=== PATIENT | female | born 1985 | race Caucasian/White ===

== ENCOUNTER 2017-10-30 21:10 | Inpatient (IN) | payer SELFPAY ==
[2017-10-30] MEDS ORDERED: Carboprost Tromethamine 250 MCG/1 ML Amp IM PRN (21:13)
[2017-10-30] MEDS ORDERED: Methylergonovine 0.2 MG/1 ML Amp IM PRN (21:13)
[2017-10-30] MEDS ORDERED: Butorphanol 1 MG/ML SDV IVPUSH PRN (21:13)
[2017-10-30] MEDS ORDERED: Lidocaine 1% 50 ML MDV INJECT PRN (21:13)
[2017-10-30] MEDS ORDERED: Sodium Chloride 0.9% 10 ML Syringe FLUSH PRN (21:13)
[2017-10-30] MEDS ORDERED: Misoprostol 200 MCG Tab PO PRN (21:13)
[2017-10-30] MEDS ORDERED: Sodium Chloride 0.9% 2.5 ML Syringe FLUSH PRN (21:13)
[2017-10-30] MEDS ORDERED: Nalbuphine 10 MG/1 ML Vial IVPUSH PRN (21:13)
[2017-10-30] MEDS ORDERED: Water For Irrigation,Sterile 1,000 ML Container IRR PRN (21:13)
[2017-10-30] MEDS ORDERED: Tranexamic Acid 1,000 MG in Sodium Chloride 0.9% 100 ML IV PRN (21:13)
[2017-10-30] MEDS ORDERED: Oxytocin/0.9 % Sodium Chloride 30 UNIT/500 ML BAG IV SCH (21:15)
[2017-10-30] MEDS ORDERED: Lactated Ringers 1,000 ML IV SCH (21:15)
--- NOTE | 2017-10-30 21:19 | PCM.LDHP ---
L&D History of Present Illness - General Date of Service: 10/30/17 Admit Problem/Dx: Patient Status Order with Admit Dx/Problem 10/30/17 21:13 Patient Status [ADT] Routine Admission Diagnosis/Problem Admission Diagnosis/Problem 10/30/17 21:15 32y EDC 10/23/2017 40 6/7wks B+, RI, GBS neg. Active Labor Source of Information: Patient History Limitations: Reports: No Limitations - History of Present Illness Timing/Duration: Reports: minutes: Location, : Reports: Abdomen Quality: Reports: Ache Severity: Moderate Improves with: Reports: None Worsens with: Reports: None Associated Symptoms: Reports: N - Related Data Allergies/Adverse Reactions: Allergies Allergy/AdvReac Type Severity Reaction Status Date / Time No Known Allergies Allergy Verified 03/05/14 16:35 Home Medications: Home Meds Cranberry 03/05/14 [History] Lactobacillus Acidophilus [Probiotic] 1 each PO 03/05/14 [History] Vits #93/Iron Fum/FA [ Formula Tablet] 1 each PO 03/05/14 [ History] Past Medical History Other Musculoskeletal History: surgery on R knee H&P Review of Systems - Review of Systems: Review Of Systems: See Below General: Reports: No Symptoms HEENT: Reports: No Symptoms Pulmonary: Reports: No Symptoms Cardiovascular: Reports: No Symptoms Gastrointestinal: Reports: No Symptoms Genitourinary: Reports: No Symptoms Musculoskeletal: Reports: No Symptoms Skin: Reports: No Symptoms Psychiatric: Reports: No Symptoms Neurological: Reports: No Symptoms Hematologic/Lymphatic: Reports: No Symptoms Immunologic: Reports: No Symptoms L&D Exam - Exam Exam: See Below - Vital Signs Weight: 76.204 kg - OB Specific Contraction Intensity: Moderate to Strong Movement: Active Heart Tones: Present Heart Tones per Min: 135 Heart Rate (FHR) Variability: Moderate (6-25 bmp) Presentation: Vertex - Exam General: Alert, Oriented, Cooperative HEENT: Hearing Intact Lungs: Normal Respiratory Effort GI/Abdominal Exam: Normal Bowel Sounds, Soft, Non-Tender, No Organomegaly, No Distention, No Abnormal Bruit, No Mass, Pelvis Stable Rectal Exam: Deferred Genitourinary: Cervical dilitation Back Exam: Normal Inspection, Full Range of Motion Extremities: Normal Inspection, Normal Range of Motion, Non-Tender, No Pedal Edema, Normal Capillary Refill Skin: Warm, Dry, Intact Neurological: Cranial Nerves Intact, Reflexes Equal Bilateral, Normal Speech, Normal Tone Psychiatric: Alert, Normal Affect, Normal Mood - Problem List (1) Supervision of normal IUP (intrauterine ) in multigravida SNOMED Code(s): 020469619, 481956923, 617514500 ICD Code: Z34.80 - ENCOUNTER FOR SUPRVSN OF NORMAL , UNSP TRIMESTER Status: Acute Current Visit: Yes Qualifiers: Trimester: third trimester Qualified Code(s): Z34.83 - Encounter for supervision of other normal , third trimester Problem List Initiated/Reviewed/Updated: Yes Orders Last 24hrs: Active Orders 24 hr Category Date Time Status Patient Status [ADT] Routine ADT 10/30/17 21:13 Ordered Heart Tones [RC] CONTINUOUS Care 10/30/17 21:13 Ordered Non Stress Test [RC] PER UNIT ROUTINE Care 10/30/17 21:13 Ordered May Shower [RC] ASDIRECTED Care 10/30/17 21:13 Ordered Notify Provider [RC] PRN Care 10/30/17 21:13 Ordered Up ad Hillary [RC] ASDIRECTED Care 10/30/17 21:13 Ordered Vaginal Exam [RC] PRN Care 10/30/17 21:13 Ordered Vital Signs [RC] PER UNIT ROUTINE Care 10/30/17 21:13 Ordered CBC W/O DIFF,HEMOGRAM [HEME] Routine Lab 10/30/17 21:13 Ordered TYPE AND SCREEN [BBK] Routine Lab 10/30/17 21:13 Ordered Butorphanol [Stadol] Med 10/30/17 21:13 Ordered 1 mg IVPUSH Q1H PRN Carboprost Tromethamine [Hemabate DS] Med 10/30/17 21:13 Ordered 250 mcg IM ASDIRECTED PRN Lactated Ringers @ 150 MLS/HR(1000ml) Med 10/30/17 21:15 Ordered Lactated Ringers [Ringers, Lactated] 1,000 ml IV ASDIRECTED Lidocaine 1% [Xylocaine 1%] Med 10/30/17 21:13 Ordered 50 ml INJECT .ONCE PRN Methylergonovine [Methergine] Med 10/30/17 21:13 Ordered 0.2 mg IM ASDIRECTED PRN Misoprostol [Cytotec] Med 10/30/17 21:13 Ordered 200 mcg PO .ONCE PRN Nalbuphine [Nubain] Med 10/30/17 21:13 Ordered 10 mg IVPUSH Q1H PRN Oxytocin/0.9 % Sodium Chloride [Oxytocin 30 Unit/500 ML Med 10/30/17 21:15 Ordered -NS] 30 unit in 500 ml IV TITRATE Sodium Chloride 0.9% [Saline Flush] Med 10/30/17 21:13 Ordered 10 ml FLUSH ASDIRECTED PRN Sodium Chloride 0.9% [Saline Flush] Med 10/30/17 21:13 Ordered 2.5 ml FLUSH ASDIRECTED PRN Tranexamic Acid [Cyklokapron] 1,000 mg Med 10/30/17 21:13 Ordered Sodium Chloride 0.9% [Normal Saline] 100 ml IV ONETIME Water For Irrigation,Sterile [Sterile Water for Med 10/30/17 21:13 Ordered Irrigation] 1,000 ml IRR ASDIRECTED PRN Scalp Electrode [WOMSER] Per Unit Routine Oth 10/30/17 21:13 Ordered Peripheral IV Insertion Adult [OM.PC] Routine Oth 10/30/17 21:13 Ordered Resuscitation Status Routine Resus Stat 10/30/17 21:13 Ordered Assessment/Plan Comment:: Labor A: 32y EDC 10/23/2017 40 6/7wks B+, RI, GBS neg. Active Labor P: Admit, anticipate , Dr Kamara updated,
[2017-10-30] MEDS ORDERED: Ibuprofen 800 MG Tab PO PRN (23:16)
[2017-10-30] MEDS ORDERED: Witch Hazel Medicated Pads 40/Jar TOP PRN (23:16)
[2017-10-30] MEDS ORDERED: Docusate Sodium 100 MG Cap PO PRN (23:16)
[2017-10-30] MEDS ORDERED: Lanolin 100% Cream 7 GM Tube TOP PRN (23:16)
[2017-10-30] MEDS ORDERED: Bisacodyl 10 MG Supp RECTAL PRN (23:16)
[2017-10-30] MEDS ORDERED: Acetaminophen 500 MG Tab PO PRN ×2 (23:16)
[2017-10-30] MEDS ORDERED: Benzocaine/Menthol 20%-0.5% Spray 78 GM Cannister TOP PRN (23:16)
[2017-10-30] MEDS ORDERED: oxyCODONE 5 MG Tab PO PRN (23:16)
[2017-10-30] MEDS ORDERED: Ibuprofen 400 MG Tab PO PRN (23:16)
--- NOTE | 2017-10-30 23:24 | PCM.DEL ---
L & D Note - General Info Date of Service: 10/30/17 Mother's Due Date: 10/23/17 - Delivery Note Labor: Spontaneous Delivery Outcome: Livebirth Infant Delivery Method: Spontaneous Vaginal Delivery-Single Delivery Mode: Spontaneous Presentation: Vertex Nuchal Cord: Present (x2) Anesthesia Type: None Amniotic Fluid Description: Bloody Episiotomy Type: None Laceration: None Placenta: Intact, Spontaneous Cord: 3 Vessels Estimated Blood Loss: 100 Resuscitation Needed: No Score 1 min: 9 Score 5 min: 9 Second Stage Interventions: Reports: Pushing, Knee Chest Position Delivery Comments (Free Text/Narrative):: of viable male over intact perineum. Head delivered with great pushing on hands and knees, nuchel x2 reduced over head. Shoulders and body followed easily. to mother, mom turned to back. Spont cry. RN at for evaluation. Delayed cord clamping, cord clamped and cut by FOB. Cord blood collected. Placenta delivered grossly intact. Inspection noted intact perineum. EBL 100cc, APGARS 9/9, Wt: pending. Mother and baby breast feeding well. Stable - General Info Date of Service: 10/30/17 Admission Dx/Problem (Free Text): Patient Status Order with Admit Dx/Problem 10/30/17 21:13 Patient Status [ADT] Routine Admission Diagnosis/Problem Admission Diagnosis/Problem 10/30/17 21:15 32y EDC 10/23/2017 40 6/7wks B+, RI, GBS neg. Active Labor Functional Status: Reports: Pain Controlled, Tolerating Diet, Ambulating - Review of Systems General: Reports: No Symptoms HEENT: Reports: No Symptoms Pulmonary: Reports: No Symptoms Cardiovascular: Reports: No Symptoms Gastrointestinal: Reports: No Symptoms Genitourinary: Reports: No Symptoms Musculoskeletal: Reports: No Symptoms Skin: Reports: No Symptoms Neurological: Reports: No Symptoms Psychiatric: Reports: No Symptoms - Patient Data Weight - Most Recent: 76.204 kg Lab Results Last 24 Hours: Laboratory Results - last 24 hr 10/30/17 10/30/17 Range/Units 21:19 21:19 WBC 11.62 H (4.0-11.0) K/uL RBC 4.58 (4.30-5.90) M/uL Hgb 13.5 (12.0-16.0) g/dL Hct 39.4 (36.0-46.0) % MCV 86.0 (80.0-98.0) fL MCH 29.5 (27.0-32.0) pg MCHC 34.3 (31.0-37.0) g/dL RDW Std Deviation 43.0 (28.0-62.0) fl RDW Coeff of Gualberto 14 (11.0-15.0) % Plt Count 210 (150-400) K/uL MPV 10.80 (7.40-12.00) fL Nucleated RBC % 0.0 /100WBC Nucleated RBCs # 0 K/uL Blood Type B POSITIVE Antibody Screen NEGATIVE Med Orders - Current: Current Medications Acetaminophen (Tylenol Extra Strength) 500 mg PO Q4H PRN PRN Reason: Pain Acetaminophen (Tylenol Extra Strength) 1,000 mg PO Q4H PRN PRN Reason: Pain Benzocaine/Menthol (Dermoplast Pain Relief 20%-0.5% [place]) 78 gm TOP ASDIRECTED PRN PRN Reason: Perineal Comfort Measure Bisacodyl (Dulcolax) 10 mg RECTAL .ONCE PRN PRN Reason: Constipation Docusate Sodium (Colace) 100 mg PO BID PRN PRN Reason: Constipation Emollient Ointment (Lansinoh Hpa) 0 gm TOP ASDIRECTED PRN PRN Reason: Sore Nipples Ibuprofen (Motrin) 400 mg PO Q4H PRN PRN Reason: Pain Ibuprofen (Motrin) 800 mg PO Q6H PRN PRN Reason: Pain Oxycodone HCl (Oxycodone) 5 mg PO Q2H PRN PRN Reason: Pain [place] (Tucks) 1 pad TOP ASDIRECTED PRN PRN Reason: comfort care Discontinued Medications Butorphanol Tartrate (Stadol) 1 mg IVPUSH Q1H PRN PRN Reason: Pain Carboprost Tromethamine (Hemabate Ds) 250 mcg IM ASDIRECTED PRN PRN Reason: Post Hemorrhage Lactated Ringer's (Ringers, Lactated) 1,000 mls @ 150 mls/hr IV ASDIRECTED JUANJOSE Oxytocin/Sodium Chloride (Oxytocin 30 Unit/500 Ml-Ns) 30 unit in 500 mls @ 500 mls/hr IV TITRATE JUANJOSE Tranexamic Acid 1,000 mg/ (Sodium Chloride) 110 mls @ 660 mls/hr IV ONETIME PRN PRN Reason: Bleeding Lidocaine HCl (Xylocaine 1%) 50 ml INJECT .ONCE PRN PRN Reason: Laceration repair Methylergonovine Maleate (Methergine) 0.2 mg IM ASDIRECTED PRN PRN Reason: Post Hemorrhage Misoprostol (Cytotec) 200 mcg PO .ONCE PRN PRN Reason: Post Hemorrhage Nalbuphine HCl (Nubain) 10 mg IVPUSH Q1H PRN PRN Reason: Pain (severe 7-10) Sodium Chloride (Saline Flush) 10 ml FLUSH ASDIRECTED PRN PRN Reason: Keep Vein Open Sodium Chloride (Saline Flush) 2.5 ml FLUSH ASDIRECTED PRN PRN Reason: Keep Vein Open Sterile Water (Sterile Water For Irrigation) 1,000 ml IRR ASDIRECTED PRN PRN Reason: delivery - Exam General: Alert, Oriented, Cooperative, No Acute Distress Lungs: Normal Respiratory Effort GI/Abdominal Exam: Soft, Non-Tender (Female) Exam: Normal External Exam, Vaginal Bleeding Back Exam: Normal Inspection, Full Range of Motion Extremities: Normal Inspection, Normal Range of Motion, Non-Tender, No Pedal Edema, Normal Capillary Refill Skin: Warm, Dry, Intact Wound/Incisions: Healing Well Neurological: No New Focal Deficit, Normal Gait, Normal Speech, Normal Tone, Strength Equal Bilateral Psy/Mental Status: Alert, Normal Affect, Normal Mood - Problem List & Annotations (1) Supervision of normal IUP (intrauterine ) in multigravida SNOMED Code(s): 753442480, 369275321, 209077794 Code(s): Z34.80 - ENCOUNTER FOR SUPRVSN OF NORMAL , UNSP TRIMESTER Status: Acute Current Visit: Yes Qualifiers: Trimester: third trimester Qualified Code(s): Z34.83 - Encounter for supervision of other normal , third trimester (2) (normal spontaneous vaginal delivery) SNOMED Code(s): 07335554 Code(s): O80 - ENCOUNTER FOR FULL-TERM UNCOMPLICATED DELIVERY Status: Acute Priority: High Current Visit: Yes - Problem List Review Problem List Initiated/Reviewed/Updated: Yes - My Orders Last 24 Hours: My Active Orders 10/30/17 21:13 Heart Tones [RC] CONTINUOUS Non Stress Test [RC] PER UNIT ROUTINE May Shower [RC] ASDIRECTED Notify Provider [RC] PRN Up ad Hillary [RC] ASDIRECTED Vaginal Exam [RC] PRN Vital Signs [RC] PER UNIT ROUTINE 10/30/17 23:16 May Shower [RC] ASDIRECTED Up ad Hillary [RC] ASDIRECTED Vital Signs [RC] PER UNIT ROUTINE Acetaminophen [Tylenol Extra Strength] 1,000 mg PO Q4H PRN Acetaminophen [Tylenol Extra Strength] 500 mg PO Q4H PRN Benzocaine/Menthol [Dermoplast Pain Relief 20%-0.5% [place]] 78 gm TOP ASDIRECTED PRN Bisacodyl [Dulcolax] 10 mg RECTAL .ONCE PRN Docusate Sodium [Colace] 100 mg PO BID PRN Ibuprofen [Motrin] 400 mg PO Q4H PRN Ibuprofen [Motrin] 800 mg PO Q6H PRN Lanolin [Lansinoh HPA] See Dose Instructions TOP ASDIRECTED PRN [place] [Tucks] 1 pad TOP ASDIRECTED PRN oxyCODONE 5 mg PO Q2H PRN Assess Lochia [WOMSER] Per Unit Routine Assess Uterine Involution [WOMSER] Per Unit Routine Peripheral IV Discontinue [OM.PC] Routine Resuscitation Status Routine 10/30/17 23:17 Patient Status [ADT] Routine 10/31/17 Breakfast Regular Diet [DIET] - Plan Plan:: Labor A: 32y EDC 10/23/2017 40 6/7wks B+, RI, GBS neg. Active Labor P: Admit, anticipate , Dr Kamara updated, Delivery A: of viable male APGARS 9/9, Wt: 7lb 13oz, Intact perineum, EBL 100cc, Mom and baby stable. P: Routine pp plan of care
--- NOTE | 2017-10-31 07:56 | PCM.DCSUM1 ---
Discharge Summary - Hospital Course Free Text/Narrative:: Discharge home with infant. Follow up in 6 weeks or sooner if needed. - Discharge Data Discharge Date: 10/31/17 Discharge Disposition: Home, Self-Care 01 Condition: Good - Discharge Diagnosis/Problem(s) (1) Supervision of normal IUP (intrauterine ) in multigravida SNOMED Code(s): 844360406, 389335286, 431590222 ICD Code: Z34.80 - ENCOUNTER FOR SUPRVSN OF NORMAL , UNSP TRIMESTER Status: Acute Current Visit: Yes Qualifiers: Trimester: third trimester Qualified Code(s): Z34.83 - Encounter for supervision of other normal , third trimester (2) (normal spontaneous vaginal delivery) SNOMED Code(s): 91804526 ICD Code: O80 - ENCOUNTER FOR FULL-TERM UNCOMPLICATED DELIVERY Status: Acute Priority: High Current Visit: Yes - Patient Instructions Diet: Usual Diet as Tolerated Activity: As Tolerated, No Strenuous Activities, Rest and Relax Today Driving: May Drive Today Showering/Bathing: May Shower Notify Provider of: Fever, Increased Pain, Swelling and Redness, Nausea and/or Vomiting Other/Special Instructions: Discharge home with infant. Follow up in 6 weeks or sooner if needed. - Discharge Plan Home Medications: Home Meds Cranberry 03/05/14 [History] Lactobacillus Acidophilus [Probiotic] 1 each PO 03/05/14 [History] Vits #93/Iron Fum/FA [ Formula Tablet] 1 each PO 03/05/14 [ History] - General Info Date of Service: 10/31/17 Admission Dx/Problem (Free Text: Patient Status Order with Admit Dx/Problem 10/30/17 21:13 Patient Status [ADT] Routine Admission Diagnosis/Problem Admission Diagnosis/Problem 10/30/17 21:15 32y EDC 10/23/2017 40 6/7wks B+, RI, GBS neg. Active Labor Functional Status: Reports: Pain Controlled, Tolerating Diet, Ambulating, Urinating - Review of Systems General: Reports: No Symptoms HEENT: Reports: No Symptoms Pulmonary: Reports: No Symptoms Cardiovascular: Reports: No Symptoms Gastrointestinal: Reports: No Symptoms Genitourinary: Reports: No Symptoms Musculoskeletal: Reports: No Symptoms Skin: Reports: No Symptoms Neurological: Reports: No Symptoms Psychiatric: Reports: No Symptoms - Patient Data Vitals - Most Recent: Last Vital Signs Temp 36.4 C 10/31/17 03:30 Pulse 56 L 10/31/17 03:30 Resp 18 10/31/17 03:30 BP 108/56 L 10/31/17 03:30 Pulse Ox 96 10/31/17 03:30 Weight - Most Recent: 76.204 kg Lab Results - Last 24 hrs: Laboratory Results - last 24 hr 10/30/17 10/30/17 Range/Units 21:19 21:19 WBC 11.62 H (4.0-11.0) K/uL RBC 4.58 (4.30-5.90) M/uL Hgb 13.5 (12.0-16.0) g/dL Hct 39.4 (36.0-46.0) % MCV 86.0 (80.0-98.0) fL MCH 29.5 (27.0-32.0) pg MCHC 34.3 (31.0-37.0) g/dL RDW Std Deviation 43.0 (28.0-62.0) fl RDW Coeff of Gualberto 14 (11.0-15.0) % Plt Count 210 (150-400) K/uL MPV 10.80 (7.40-12.00) fL Nucleated RBC % 0.0 /100WBC Nucleated RBCs # 0 K/uL Blood Type B POSITIVE Antibody Screen NEGATIVE Med Orders - Current: Current Medications Acetaminophen (Tylenol Extra Strength) 500 mg PO Q4H PRN PRN Reason: Pain Acetaminophen (Tylenol Extra Strength) 1,000 mg PO Q4H PRN PRN Reason: Pain Benzocaine/Menthol (Dermoplast Pain Relief 20%-0.5% [place]) 78 gm TOP ASDIRECTED PRN PRN Reason: Perineal Comfort Measure Bisacodyl (Dulcolax) 10 mg RECTAL .ONCE PRN PRN Reason: Constipation Docusate Sodium (Colace) 100 mg PO BID PRN PRN Reason: Constipation Emollient Ointment (Lansinoh Hpa) 0 gm TOP ASDIRECTED PRN PRN Reason: Sore Nipples Ibuprofen (Motrin) 400 mg PO Q4H PRN PRN Reason: Pain Ibuprofen (Motrin) 800 mg PO Q6H PRN PRN Reason: Pain Last Admin: 06/07/18 05:24 Dose: 800 mg Oxycodone HCl (Oxycodone) 5 mg PO Q2H PRN PRN Reason: Pain [place] (Tucks) 1 pad TOP ASDIRECTED PRN PRN Reason: comfort care Discontinued Medications Butorphanol Tartrate (Stadol) 1 mg IVPUSH Q1H PRN PRN Reason: Pain Carboprost Tromethamine (Hemabate Ds) 250 mcg IM ASDIRECTED PRN PRN Reason: Post Hemorrhage Lactated Ringer's (Ringers, Lactated) 1,000 mls @ 150 mls/hr IV ASDIRECTED JUANJOSE Oxytocin/Sodium Chloride (Oxytocin 30 Unit/500 Ml-Ns) 30 unit in 500 mls @ 500 mls/hr IV TITRATE JUANJOSE Tranexamic Acid 1,000 mg/ (Sodium Chloride) 110 mls @ 660 mls/hr IV ONETIME PRN PRN Reason: Bleeding Lidocaine HCl (Xylocaine 1%) 50 ml INJECT .ONCE PRN PRN Reason: Laceration repair Methylergonovine Maleate (Methergine) 0.2 mg IM ASDIRECTED PRN PRN Reason: Post Hemorrhage Misoprostol (Cytotec) 200 mcg PO .ONCE PRN PRN Reason: Post Hemorrhage Nalbuphine HCl (Nubain) 10 mg IVPUSH Q1H PRN PRN Reason: Pain (severe 7-10) Sodium Chloride (Saline Flush) 10 ml FLUSH ASDIRECTED PRN PRN Reason: Keep Vein Open Sodium Chloride (Saline Flush) 2.5 ml FLUSH ASDIRECTED PRN PRN Reason: Keep Vein Open Sterile Water (Sterile Water For Irrigation) 1,000 ml IRR ASDIRECTED PRN PRN Reason: delivery - Exam General: Reports: Alert, Oriented, Cooperative, No Acute Distress Lungs: Reports: Clear to Auscultation, Normal Respiratory Effort Cardiovascular: Reports: Regular Rate, Regular Rhythm, No Murmurs GI/Abdominal Exam: Soft, Non-Tender (Female) Exam: Vaginal Bleeding Rectal (Female) Exam: Deferred Back Exam: Reports: Normal Inspection, Full Range of Motion Extremities: Normal Inspection, Normal Range of Motion, Non-Tender, No Pedal Edema, Normal Capillary Refill Skin: Reports: Warm, Dry, Intact Wound/Incisions: Reports: Healing Well Neurological: Reports: No New Focal Deficit, Normal Gait, Normal Speech, Normal Tone, Strength Equal Bilateral Psy/Mental Status: Reports: Alert, Normal Affect, Normal Mood
[2017-10-31 11:15] VITALS: BP 110/70
== END 2017-10-31 13:25 | disposition home or self-care (01) | DRG 775 ==
LOC: MW.OBCHECK 21:10 → MW.OB 21:13 → MW.OBCHECK 21:13 → MW.OB 21:29 → OBSVTOIN 22:50
PROVIDERS: ADMIT Obstetrics & Gynecology; ATTEND Advanced Practice Midwife
PROC: 10E0XZZ Delivery of Products of Conception, External Approach (ICD-10-PCS; principal; 2017-10-30)
DX: O69.1XX0 Labor and delivery complicated by cord around neck, with compression, not applicable or unspecified (principal); Z3A.40 40 weeks gestation of pregnancy; Z37.0 Single live birth
CPT/HCPCS: 59025; 59409; 85027; 86850; 86900; 86901; A9270-GY

== ENCOUNTER 2020-02-19 00:56 | Observation (INO) | payer OTHER ==
[2020-02-19] MEDS ORDERED: Lidocaine 1% 50 ML MDV INJECT PRN (03:15)
[2020-02-19] MEDS ORDERED: Methylergonovine 0.2 MG/1 ML Amp IM PRN (03:15)
[2020-02-19] MEDS ORDERED: Sodium Chloride 0.9% 2.5 ML Syringe FLUSH PRN (03:15)
[2020-02-19] MEDS ORDERED: Butorphanol 1 MG/ML SDV IVPUSH PRN (03:15)
[2020-02-19] MEDS ORDERED: Tranexamic Acid 1,000 MG in Sodium Chloride 0.9% 100 ML IV PRN (03:15)
[2020-02-19] MEDS ORDERED: Water For Irrigation,Sterile 1,000 ML Container IRR PRN (03:15)
[2020-02-19] MEDS ORDERED: Sodium Chloride 0.9% 10 ML SDV IV PRN (03:15)
[2020-02-19] MEDS ORDERED: Sodium Chloride 0.9% 10 ML Syringe FLUSH PRN (03:15)
[2020-02-19] MEDS ORDERED: Nalbuphine 10 MG/1 ML Vial IVPUSH PRN (03:15)
[2020-02-19] MEDS ORDERED: Misoprostol 200 MCG Tab PO PRN (03:15)
[2020-02-19] MEDS ORDERED: Carboprost Tromethamine 250 MCG/1 ML Amp IM PRN (03:15)
[2020-02-19] MEDS ORDERED: Lactated Ringers 1,000 ML IV SCH (03:15)
[2020-02-19] MEDS ORDERED: Oxytocin/0.9 % Sodium Chloride 30 UNIT/500 ML BAG IV SCH (03:15)
--- NOTE | 2020-02-19 07:49 | PCM.LDHP ---
L&D History of Present Illness - General Date of Service: 02/19/20 Admit Problem/Dx: Patient Status Order with Admit Dx/Problem 02/19/20 03:15 Patient Status [ADT] Routine Admission Diagnosis/Problem Admission Diagnosis/Problem 02/19/20 07:49 at 42 2/7 weeks (SHAHAB: 02/03/20) presenting to L&D reporting regular uterine contractions. B+, rubella immune, GBS negative. COVID negative. Discuss plan of care. Patient desires to go home to labor for a few hours until contractions become more regular and stronger. Discuss COVID test results are good for 72 hours. notable for IUGR diagnosed around 32 weeks by MFM. Patient declined further testing/monitoring for IUGR. Reactive NST this AM. Source of Information: Patient History Limitations: Reports: No Limitations - Related Data Allergies/Adverse Reactions: Allergies Allergy/AdvReac Type Severity Reaction Status Date / Time No Known Allergies Allergy Verified 03/05/14 16:35 Home Medications: Home Meds Cranberry 03/05/14 [History] Lactobacillus Acidophilus [Probiotic] 1 each PO 03/05/14 [History] Vits #93/Iron Fum/FA [ Formula Tablet] 1 each PO 03/05/14 [History] Past Medical History HEENT History: Reports: None Cardiovascular History: Reports: None Respiratory History: Reports: None Gastrointestinal History: Reports: None Genitourinary History: Reports: None 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 Musculoskeletal History: surgery on R knee Neurological History: Reports: None Psychiatric History: Reports: None Endocrine/Metabolic History: Reports: None Hematologic History: Reports: None Oncologic (Cancer) History: Reports: None Dermatologic History: Reports: None - Infectious Disease History Infectious Disease History: Reports: Chicken Pox, Influenza - Past Surgical History HEENT Surgical History: Reports: None Female Surgical History: Reports: None Musculoskeletal Surgical History: Reports: Other (See Below) Other Musculoskeletal Surgeries/Procedures:: ACL on right knee Social & Family History - Family History HEENT: Reports: None Cardiac: Reports: Other (See Below) Other Cardiac Family History: hypertrophic cardiomyopathy with AID both brother and father GI: Reports: None : Reports: None OBGYN: Reports: None Musculoskeletal: Reports: None Hematologic: Reports: None Immunologic: Reports: None Dermatologic: Reports: None Oncologic: Reports: Colon, Lung - Tobacco Use Smoking Status *Q: Never Smoker Second Hand Smoke Exposure: No - Caffeine Use Caffeine Use: Reports: Coffee, Tea - Recreational Drug Use Recreational Drug Use: No H&P Review of Systems - Review of Systems: Review Of Systems: See Below General: Reports: No Symptoms HEENT: Reports: No Symptoms Pulmonary: Reports: No Symptoms Cardiovascular: Reports: No Symptoms Gastrointestinal: Reports: No Symptoms Genitourinary: Reports: No Symptoms Musculoskeletal: Reports: No Symptoms Skin: Reports: No Symptoms Psychiatric: Reports: No Symptoms Neurological: Reports: No Symptoms Hematologic/Lymphatic: Reports: No Symptoms Immunologic: Reports: No Symptoms L&D Exam - Exam Exam: See Below - Vital Signs Weight: 173 lb - OB Specific Contraction Intensity: Mild Movement: Active Heart Tones: Present Heart Rate (FHR) Variability: Moderate (6-25 bmp) - Exam General: Alert, Oriented Lungs: Normal Respiratory Effort Cardiovascular: Regular Rate, Regular Rhythm GI/Abdominal Exam: Soft, Non-Tender Rectal Exam: Deferred Genitourinary: Deferred Back Exam: Normal Inspection, Full Range of Motion Extremities: Normal Inspection, Normal Range of Motion, Non-Tender, No Pedal Edema, Normal Capillary Refill Skin: Warm, Dry, Intact Neurological: Strength Equal Bilateral, Normal Gait, Normal Speech, Normal Tone, Sensation Intact Psychiatric: Alert, Normal Affect, Normal Mood - Patient Data Lab Results Last 24 hrs: Laboratory Results - last 24 hr 02/19/20 Range/Units 03:07 SARS-CoV-2 RNA (LURDES) NEGATIVE (NEGATIVE) - Problem List (1) Supervision of normal IUP (intrauterine ) in multigravida SNOMED Code(s): 160612407, 675876028, 862313553 ICD Code: Z34.80 - ENCOUNTER FOR SUPRVSN OF NORMAL , UNSP TRIMESTER Status: Acute Priority: High Current Visit: No Qualifiers: Trimester: third trimester Qualified Code(s): Z34.83 - Encounter for supervision of other normal , third trimester Problem List Initiated/Reviewed/Updated: Yes Orders Last 24hrs: Active Orders 24 hr Category Date Time Status Patient Status [ADT] Routine ADT 02/19/20 03:15 Active Heart Tones [RC] CONTINUOUS Care 02/19/20 03:15 Active Non Stress Test [RC] PER UNIT ROUTINE Care 02/19/20 03:15 Active May Shower [RC] ASDIRECTED Care 02/19/20 03:15 Active Notify Provider [RC] PRN Care 02/19/20 03:15 Active Ready for Discharge [RC] PER UNIT ROUTINE Care 02/19/20 07:14 Active Up ad Hillary [RC] ASDIRECTED Care 02/19/20 03:15 Active Vaginal Exam [RC] PRN Care 02/19/20 03:15 Active Vital Signs [RC] PER UNIT ROUTINE Care 02/19/20 03:15 Active CBC W/O DIFF,HEMOGRAM [HEME] Routine Lab 02/19/20 03:15 Ordered RPR (SYPHILIS SERO) W/ RFLX [REF] Routine Lab 02/19/20 03:15 Ordered TYPE AND SCREEN [BBK] Routine Lab 02/19/20 03:15 Ordered Butorphanol [Stadol] Med 02/19/20 03:15 Active 1 mg IVPUSH Q1H PRN Carboprost Tromethamine [Hemabate DS] Med 02/19/20 03:15 Active 250 mcg IM ASDIRECTED PRN Lactated Ringers [Ringers, Lactated] 1,000 ml Med 02/19/20 03:15 Active IV ASDIRECTED Lidocaine 1% [Xylocaine 1%] Med 02/19/20 03:15 Active 50 ml INJECT ONETIME PRN Methylergonovine [Methergine] Med 02/19/20 03:15 Active 0.2 mg IM ASDIRECTED PRN Nalbuphine [Nubain] Med 02/19/20 03:15 Active 10 mg IVPUSH Q1H PRN Oxytocin/0.9 % Sodium Chloride [Oxytocin 30 Unit/500 ML Med 02/19/20 03:15 Active -NS] 30 unit in 500 ml IV TITRATE Sodium Chloride 0.9% [Normal Saline] Med 02/19/20 03:15 Active 10 ml IV ASDIRECTED PRN Sodium Chloride 0.9% [Saline Flush] Med 02/19/20 03:15 Active 10 ml FLUSH ASDIRECTED PRN Sodium Chloride 0.9% [Saline Flush] Med 02/19/20 03:15 Active 2.5 ml FLUSH ASDIRECTED PRN Tranexamic Acid [Cyklokapron] 1,000 mg Med 02/19/20 03:15 Active Sodium Chloride 0.9% [Normal Saline] 100 ml IV ONETIME Water For Irrigation,Sterile [Sterile Water for Med 02/19/20 03:15 Active Irrigation] 1,000 ml IRR ASDIRECTED PRN miSOPROStoL [Cytotec] Med 02/19/20 03:15 Active 200 mcg PO ONETIME PRN Scalp Electrode [WOMSER] Per Unit Routine Oth 02/19/20 03:15 Ordered Peripheral IV Insertion Adult [OM.PC] Routine Oth 02/19/20 03:15 Ordered Resuscitation Status Routine Resus Stat 02/19/20 03:15 Ordered Medication Orders Butorphanol Tartrate (Stadol) 1 mg IVPUSH Q1H PRN PRN Reason: Pain Carboprost Tromethamine (Hemabate Ds) 250 mcg IM ASDIRECTED PRN PRN Reason: Post Hemorrhage Oxytocin/Sodium Chloride (Oxytocin 30 Unit/500 Ml-Ns) 30 unit in 500 mls @ 500 mls/hr IV TITRATE JUANJOSE Tranexamic Acid 1,000 mg/ (Sodium Chloride) 110 mls @ 660 mls/hr IV ONETIME PRN PRN Reason: Bleeding Lactated Ringer's (Ringers, Lactated) 1,000 mls @ 150 mls/hr IV ASDIRECTED JUANJOSE Lidocaine HCl (Xylocaine 1%) 50 ml INJECT ONETIME PRN PRN Reason: Laceration repair Methylergonovine Maleate (Methergine) 0.2 mg IM ASDIRECTED PRN PRN Reason: Post Hemorrhage Misoprostol (Cytotec) 200 mcg PO ONETIME PRN PRN Reason: Post Hemorrhage Nalbuphine HCl (Nubain) 10 mg IVPUSH Q1H PRN PRN Reason: Pain (severe 7-10) Sodium Chloride (Saline Flush) 10 ml FLUSH ASDIRECTED PRN PRN Reason: Keep Vein Open Sodium Chloride (Saline Flush) 2.5 ml FLUSH ASDIRECTED PRN PRN Reason: Keep Vein Open Sodium Chloride (Normal Saline) 10 ml IV ASDIRECTED PRN PRN Reason: IV Use Sterile Water (Sterile Water For Irrigation) 1,000 ml IRR ASDIRECTED PRN PRN Reason: delivery Assessment/Plan Comment:: at 42 2/7 weeks (SHAHAB: 02/03/20) presenting to L&D reporting regular uterine contractions. B+, rubella immune, GBS negative. COVID negative. Discuss plan of care. Patient desires to go home to labor for a few hours until contractions become more regular and stronger. Discuss COVID test results are good for 72 hours. notable for IUGR diagnosed around 32 weeks by MFM. Patient declined further testing/monitoring for IUGR. Reactive NST this AM.
== END 2020-02-19 07:14 | disposition home or self-care (01) ==
LOC: MW.OBCHECK 00:56 → MW.OB 00:57 → MW.OBCHECK 03:15 → MW.OB 03:15
PROVIDERS: ADMIT Obstetrics & Gynecology; ATTEND Nurse Practitioner Women's Health
DX: O47.1 False labor at or after 37 completed weeks of gestation (principal); Z3A.42 42 weeks gestation of pregnancy; Z20.828 Contact with and (suspected) exposure to other viral communicable diseases
CPT/HCPCS: G0378; U0002

== ENCOUNTER 2020-02-19 18:46 | Inpatient (IN) | payer OTHER ==
[2020-02-19] MEDS ORDERED: Lidocaine 1% 50 ML MDV INJECT PRN (20:59)
[2020-02-19] MEDS ORDERED: Tranexamic Acid 1,000 MG in Sodium Chloride 0.9% 100 ML IV PRN (20:59)
[2020-02-19] MEDS ORDERED: Carboprost Tromethamine 250 MCG/1 ML Amp IM PRN (20:59)
[2020-02-19] MEDS ORDERED: Misoprostol 200 MCG Tab PO PRN (20:59)
[2020-02-19] MEDS ORDERED: Methylergonovine 0.2 MG/1 ML Amp IM PRN (20:59)
[2020-02-19] MEDS ORDERED: Sodium Chloride 0.9% 10 ML Syringe FLUSH PRN (20:59)
[2020-02-19] MEDS ORDERED: Butorphanol 1 MG/ML SDV IVPUSH PRN (20:59)
[2020-02-19] MEDS ORDERED: Sodium Chloride 0.9% 2.5 ML Syringe FLUSH PRN (20:59)
[2020-02-19] MEDS ORDERED: Water For Irrigation,Sterile 1,000 ML Container IRR PRN (20:59)
[2020-02-19] MEDS ORDERED: Nalbuphine 10 MG/1 ML Vial IVPUSH PRN ×2 (20:59→21:16)
[2020-02-19] MEDS ORDERED: Sodium Chloride 0.9% 10 ML SDV IV PRN (20:59)
[2020-02-19] MEDS ORDERED: Oxytocin/0.9 % Sodium Chloride 30 UNIT/500 ML BAG IV SCH (21:00)
[2020-02-19] MEDS ORDERED: Lactated Ringers 1,000 ML IV SCH (21:00)
--- NOTE | 2020-02-19 21:50 | PCM.LDHP ---
L&D History of Present Illness - General Date of Service: 02/19/20 Admit Problem/Dx: Patient Status Order with Admit Dx/Problem 02/19/20 20:59 Patient Status [ADT] Routine Admission Diagnosis/Problem Admission Diagnosis/Problem 02/19/20 21:45 Priyanka is a 35 yo at 42.2 weeks gestation (SHAHAB 02/03/2020) that presents today with C/O strong uterine contractions since this am that have progressively w orsened in the last 1 hour. B pos, RI, GBS neg. Pertinent history includes: suspected IUGR this with declined intervention, postdates with declined IOL. Patient denies vaginal bleeding, LOF. Reports adequate movement. Patient denies any other problems or concerns at this time. Source of Information: Patient History Limitations: Reports: No Limitations - Related Data Allergies/Adverse Reactions: Allergies Allergy/AdvReac Type Severity Reaction Status Date / Time No Known Allergies Allergy Verified 03/05/14 16:35 Home Medications: Home Meds Cranberry 03/05/14 [History] Lactobacillus Acidophilus [Probiotic] 1 each PO 03/05/14 [History] Vits #93/Iron Fum/FA [ Formula Tablet] 1 each PO 03/05/14 [History] Past Medical History HEENT History: Reports: None Cardiovascular History: Reports: None Respiratory History: Reports: None Gastrointestinal History: Reports: None Genitourinary History: Reports: None 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: : 5 Para: 4 LMP (Approximate): Other Musculoskeletal History: surgery on R knee Neurological History: Reports: None Psychiatric History: Reports: None Endocrine/Metabolic History: Reports: None Hematologic History: Reports: None Immunologic History: Reports: None Oncologic (Cancer) History: Reports: None Dermatologic History: Reports: None - Infectious Disease History Infectious Disease History: Reports: Chicken Pox, Influenza - Past Surgical History HEENT Surgical History: Reports: None Female Surgical History: Reports: None Musculoskeletal Surgical History: Reports: Other (See Below) Other Musculoskeletal Surgeries/Procedures:: ACL on right knee Social & Family History - Family History HEENT: Reports: None Cardiac: Reports: Other (See Below) Other Cardiac Family History: hypertrophic cardiomyopathy with AID both brother and father Respiratory: Reports: None GI: Reports: None : Reports: None OBGYN: Reports: None Musculoskeletal: Reports: None Neurological: Reports: None Psychiatric: Reports: None Hematologic: Reports: None Immunologic: Reports: None Dermatologic: Reports: None Oncologic: Reports: Colon, Lung - Tobacco Use Smoking Status *Q: Never Smoker - Caffeine Use Caffeine Use: Reports: Coffee, Tea - Alcohol Use Alcohol Use History: No - Recreational Drug Use Recreational Drug Use: No - Sexual History Sexual History: Reports: None H&P Review of Systems - Review of Systems: Review Of Systems: Comprehensive ROS is negative, except as noted in HPI. General: Reports: No Symptoms HEENT: Reports: No Symptoms Pulmonary: Reports: No Symptoms Cardiovascular: Reports: No Symptoms Gastrointestinal: Reports: No Symptoms Genitourinary: Reports: No Symptoms Musculoskeletal: Reports: No Symptoms Skin: Reports: No Symptoms Psychiatric: Reports: No Symptoms Neurological: Reports: No Symptoms Hematologic/Lymphatic: Reports: No Symptoms Immunologic: Reports: No Symptoms L&D Exam - Exam Exam: See Below - Vital Signs Vital Signs: See chart. Hemodynamically stable, afebrile. Weight: 173 lb - OB Specific Contraction Duration (sec): 60-80 Contraction Frequency (min): 2-3 Contraction Intensity: Strong Movement: Active Heart Tones: Present Heart Tones per Min: 130 Heart Rate (FHR) Variability: Moderate (6-25 bmp) Presentation: Vertex - Exam General: Alert, Oriented, Cooperative, Mild Distress (Breathing well through contractions.) HEENT: Conjunctiva Clear, Hearing Intact, Mucosa Moist & [place], Posterior Pharynx Clear, PERRLA Neck: Supple, Trachea Midline Lungs: Clear to Auscultation, Normal Respiratory Effort Cardiovascular: Regular Rate, Regular Rhythm GI/Abdominal Exam: Normal Bowel Sounds, Soft, Non-Tender, Pelvis Stable Genitourinary: Normal external exam, Normal bimanual exam Back Exam: Normal Inspection, Full Range of Motion Extremities: Normal Inspection, Normal Range of Motion, Non-Tender, No Pedal Edema, Normal Capillary Refill Skin: Warm, Dry, Intact Neurological: Cranial Nerves Intact, Reflexes Equal Bilateral Psychiatric: Alert, Normal Affect, Normal Mood - Patient Data Lab Results Last 24 hrs: Laboratory Results - last 24 hr 02/19/20 Range/Units 21:13 WBC 15.45 H (4.0-11.0) K/uL RBC 4.66 (4.30-5.90) M/uL Hgb 14.2 (12.0-16.0) g/dL Hct 42.8 (36.0-46.0) % MCV 91.8 (80.0-98.0) fL MCH 30.5 (27.0-32.0) pg MCHC 33.2 (31.0-37.0) g/dL RDW Std Deviation 48.3 (28.0-62.0) fl RDW Coeff of Gualberto 14 (11.0-15.0) % Plt Count 232 (150-400) K/uL MPV 10.90 (7.40-12.00) fL Nucleated RBC % 0.0 /100WBC Nucleated RBCs # 0 K/uL Result Diagrams: 02/19/20 21:13 - Problem List (1) Uterine contractions SNOMED Code(s): 335344119 ICD Code: AZJ9107 - Status: Acute Priority: High Current Visit: Yes (2) 42 weeks gestation of SNOMED Code(s): 88412967 ICD Code: Z3A.42 - 42 WEEKS GESTATION OF Status: Acute Priority: High Current Visit: Yes Problem List Initiated/Reviewed/Updated: Yes Orders Last 24hrs: Active Orders 24 hr Category Date Time Status Patient Status [ADT] Routine ADT 02/19/20 20:59 Active Heart Tones [RC] CONTINUOUS Care 02/19/20 20:59 Active Non Stress Test [RC] PER UNIT ROUTINE Care 02/19/20 20:59 Active May Shower [RC] ASDIRECTED Care 02/19/20 20:59 Active Notify Provider [RC] PRN Care 02/19/20 20:59 Active Up ad Hillary [RC] ASDIRECTED Care 02/19/20 20:59 Active Vaginal Exam [RC] PRN Care 02/19/20 20:59 Active Vital Signs [RC] PER UNIT ROUTINE Care 02/19/20 20:59 Active RPR (SYPHILIS SERO) W/ RFLX [REF] Routine Lab 02/19/20 21:13 Received TYPE AND SCREEN [BBK] Routine Lab 02/19/20 21:13 Received Butorphanol [Stadol] Med 02/19/20 20:59 Active 1 mg IVPUSH Q1H PRN Carboprost Tromethamine [Hemabate DS] Med 02/19/20 20:59 Active 250 mcg IM ASDIRECTED PRN Lactated Ringers [Ringers, Lactated] 1,000 ml Med 02/19/20 21:00 Active IV ASDIRECTED Lidocaine 1% [Xylocaine 1%] Med 02/19/20 20:59 Active 50 ml INJECT ONETIME PRN Methylergonovine [Methergine] Med 02/19/20 20:59 Active 0.2 mg IM ASDIRECTED PRN Nalbuphine [Nubain] Med 02/19/20 21:16 Active 10 mg IVPUSH Q1H PRN Oxytocin/0.9 % Sodium Chloride [Oxytocin 30 Unit/500 ML Med 02/19/20 21:00 Active -NS] 30 unit in 500 ml IV TITRATE Sodium Chloride 0.9% [Normal Saline] Med 02/19/20 20:59 Active 10 ml IV ASDIRECTED PRN Sodium Chloride 0.9% [Saline Flush] Med 02/19/20 20:59 Active 10 ml FLUSH ASDIRECTED PRN Sodium Chloride 0.9% [Saline Flush] Med 02/19/20 20:59 Active 2.5 ml FLUSH ASDIRECTED PRN Tranexamic Acid [Cyklokapron] 1,000 mg Med 02/19/20 20:59 Active Sodium Chloride 0.9% [Normal Saline] 100 ml IV ONETIME Water For Irrigation,Sterile [Sterile Water for Med 02/19/20 20:59 Active Irrigation] 1,000 ml IRR ASDIRECTED PRN miSOPROStoL [Cytotec] Med 02/19/20 20:59 Active 200 mcg PO ONETIME PRN Scalp Electrode [WOMSER] Per Unit Routine Oth 02/19/20 20:59 Ordered Peripheral IV Insertion Adult [OM.PC] Routine Oth 02/19/20 20:59 Ordered Resuscitation Status Routine Resus Stat 02/19/20 20:59 Ordered Medication Orders Butorphanol Tartrate (Stadol) 1 mg IVPUSH Q1H PRN PRN Reason: Pain Carboprost Tromethamine (Hemabate Ds) 250 mcg IM ASDIRECTED PRN PRN Reason: Post Hemorrhage Oxytocin/Sodium Chloride (Oxytocin 30 Unit/500 Ml-Ns) 30 unit in 500 mls @ 500 mls/hr IV TITRATE JUANJOSE Tranexamic Acid 1,000 mg/ (Sodium Chloride) 110 mls @ 660 mls/hr IV ONETIME PRN PRN Reason: Bleeding Lactated Ringer's (Ringers, Lactated) 1,000 mls @ 150 mls/hr IV ASDIRECTED JUANJOSE Lidocaine HCl (Xylocaine 1%) 50 ml INJECT ONETIME PRN PRN Reason: Laceration repair Methylergonovine Maleate (Methergine) 0.2 mg IM ASDIRECTED PRN PRN Reason: Post Hemorrhage Misoprostol (Cytotec) 200 mcg PO ONETIME PRN PRN Reason: Post Hemorrhage Nalbuphine HCl (Nubain) 10 mg IVPUSH Q1H PRN PRN Reason: Pain (severe 7-10) Sodium Chloride (Saline Flush) 10 ml FLUSH ASDIRECTED PRN PRN Reason: Keep Vein Open Sodium Chloride (Saline Flush) 2.5 ml FLUSH ASDIRECTED PRN PRN Reason: Keep Vein Open Sodium Chloride (Normal Saline) 10 ml IV ASDIRECTED PRN PRN Reason: IV Use Sterile Water (Sterile Water For Irrigation) 1,000 ml IRR ASDIRECTED PRN PRN Reason: delivery Assessment/Plan Comment:: Admit to L&D for observation in anticipation of of post-dates viable NBM. See new orders. Dr. Kamara notified and agreeable with POC.
--- NOTE | 2020-02-19 22:00 | PCM.DEL ---
L & D Note - General Info Date of Service: 02/19/20 Mother's Due Date: 02/03/20 - Delivery Note Labor: Spontaneous Delivery Outcome: Livebirth Infant Delivery Method: Spontaneous Vaginal Delivery-Single Presentation: Left Occiput Anterior (KERRY) Nuchal Cord: None Anesthesia Type: None Amniotic Fluid Description: Clear Episiotomy Type: None Laceration: None Cord: 3 Vessels Estimated Blood Loss: 200 Resuscitation Needed: No : Stimulated, Warmed, [place] Used Score 1 min: 9 Score 5 min: 9 Second Stage Interventions: Reports: Pushing Effectively, Other (see below) (Hands and knees) Delivery Comments (Free Text/Narrative):: Priyanka is a 35 yo at 42.2 weeks gestation (SHAHAB 02/03/2020) S/P uncomplicated of viable, postdates NBM with strong spontaneous cries at . Pushed effectively and NBM on hands and knees with body following easily. NBM passed through patient legs and placed skin to skin to maternal abdomen (mother holding ). Mother and assisted to supine position. Umbilical cord clamped x 2 and cut by FOB upon cessation of cord pulsation. Placenta birthed ~7 min S/P , intact, Torres, 3VC. Perineum intact. Uterus firm, U-2. Scant rubra lochia. EBL 200 ml. Mother and resting comfortably in bed. Apgars 9/9, weight pending. - General Info Date of Service: 02/19/20 Functional Status: Reports: Pain Controlled - Review of Systems General: Reports: No Symptoms HEENT: Reports: No Symptoms Pulmonary: Reports: No Symptoms Cardiovascular: Reports: No Symptoms Gastrointestinal: Reports: No Symptoms Genitourinary: Reports: No Symptoms Musculoskeletal: Reports: No Symptoms Skin: Reports: No Symptoms Neurological: Reports: No Symptoms Psychiatric: Reports: No Symptoms - Patient Data Vitals - Most Recent: See chart. Hemodynamically stable, afebrile. Weight - Most Recent: 173 lb Lab Results Last 24 Hours: Laboratory Results - last 24 hr 02/19/20 Range/Units 21:13 WBC 15.45 H (4.0-11.0) K/uL RBC 4.66 (4.30-5.90) M/uL Hgb 14.2 (12.0-16.0) g/dL Hct 42.8 (36.0-46.0) % MCV 91.8 (80.0-98.0) fL MCH 30.5 (27.0-32.0) pg MCHC 33.2 (31.0-37.0) g/dL RDW Std Deviation 48.3 (28.0-62.0) fl RDW Coeff of Gualberto 14 (11.0-15.0) % Plt Count 232 (150-400) K/uL MPV 10.90 (7.40-12.00) fL Nucleated RBC % 0.0 /100WBC Nucleated RBCs # 0 K/uL Med Orders - Current: Current Medications Butorphanol Tartrate (Stadol) 1 mg IVPUSH Q1H PRN PRN Reason: Pain Carboprost Tromethamine (Hemabate Ds) 250 mcg IM ASDIRECTED PRN PRN Reason: Post Hemorrhage Oxytocin/Sodium Chloride (Oxytocin 30 Unit/500 Ml-Ns) 30 unit in 500 mls @ 500 mls/hr IV TITRATE [facility] Tranexamic Acid 1,000 mg/ (Sodium Chloride) 110 mls @ 660 mls/hr IV ONETIME PRN PRN Reason: Bleeding Lactated Ringer's (Ringers, Lactated) 1,000 mls @ 150 mls/hr IV ASDIRECTED [facility] Lidocaine HCl (Xylocaine 1%) 50 ml INJECT ONETIME PRN PRN Reason: Laceration repair Methylergonovine Maleate (Methergine) 0.2 mg IM ASDIRECTED PRN PRN Reason: Post Hemorrhage Misoprostol (Cytotec) 200 mcg PO ONETIME PRN PRN Reason: Post Hemorrhage Nalbuphine HCl (Nubain) 10 mg IVPUSH Q1H PRN PRN Reason: Pain (severe 7-10) Sodium Chloride (Saline Flush) 10 ml FLUSH ASDIRECTED PRN PRN Reason: Keep Vein Open Sodium Chloride (Saline Flush) 2.5 ml FLUSH ASDIRECTED PRN PRN Reason: Keep Vein Open Sodium Chloride (Normal Saline) 10 ml IV ASDIRECTED PRN PRN Reason: IV Use Sterile Water (Sterile Water For Irrigation) 1,000 ml IRR ASDIRECTED PRN PRN Reason: delivery - Exam General: Alert, Oriented, Cooperative, No Acute Distress HEENT: Pupils Equal, Pupils Reactive, EOMI, Mucous Membr. Moist/[place] Neck: Supple Lungs: Clear to Auscultation, Normal Respiratory Effort Cardiovascular: Regular Rate, Regular Rhythm GI/Abdominal Exam: Normal Bowel Sounds, Soft, Non-Tender, No Organomegaly, No Distention, Pelvis Stable (Female) Exam: Normal External Exam, Enlarged Uterus ( uterus, firm U-2) Back Exam: Normal Inspection, Full Range of Motion Extremities: Normal Inspection, Normal Range of Motion, Non-Tender, No Pedal Ed karyn, Normal Capillary Refill Skin: Warm, Dry, Intact Wound/Incisions: Healing Well Neurological: No New Focal Deficit Psy/Mental Status: Alert, Normal Affect, Normal Mood - Problem List & Annotations (1) (normal spontaneous vaginal delivery) SNOMED Code(s): 84393055, 935148526 Code(s): O80 - ENCOUNTER FOR FULL-TERM UNCOMPLICATED DELIVERY Status: Acute Priority: High Current Visit: Yes (2) Lactating mother SNOMED Code(s): 231880068, 877658960 Code(s): Z39.1 - ENCOUNTER FOR CARE AND EXAMINATION OF LACTATING MOTHER Status: Acute Priority: High Current Visit: Yes - Problem List Review Problem List Initiated/Reviewed/Updated: Yes - My Orders Last 24 Hours: My Active Orders 02/19/20 20:59 Patient Status [ADT] Routine Heart Tones [RC] CONTINUOUS Non Stress Test [RC] PER UNIT ROUTINE May Shower [RC] ASDIRECTED Notify Provider [RC] PRN Up ad Hillary [RC] ASDIRECTED Vaginal Exam [RC] PRN Vital Signs [RC] PER UNIT ROUTINE Butorphanol [Stadol] 1 mg IVPUSH Q1H PRN Carboprost Tromethamine [Hemabate DS] 250 mcg IM ASDIRECTED PRN Lidocaine 1% [Xylocaine 1%] 50 ml INJECT ONETIME PRN Methylergonovine [Methergine] 0.2 mg IM ASDIRECTED PRN Sodium Chloride 0.9% [Normal Saline] 10 ml IV ASDIRECTED PRN Sodium Chloride 0.9% [Saline Flush] 10 ml FLUSH ASDIRECTED PRN Sodium Chloride 0.9% [Saline Flush] 2.5 ml FLUSH ASDIRECTED PRN Tranexamic Acid [Cyklokapron] 1,000 mg Sodium Chloride 0.9% [Normal Saline] 100 ml IV ONETIME Water For Irrigation,Sterile [Sterile Water for Irrigation] 1,000 ml IRR ASDIRECTED PRN miSOPROStoL [Cytotec] 200 mcg PO ONETIME PRN Scalp Electrode [WOMSER] Per Unit Routine Peripheral IV Insertion Adult [OM.PC] Routine Resuscitation Status Routine 02/19/20 21:00 Lactated Ringers [Ringers, Lactated] 1,000 ml IV ASDIRECTED Oxytocin/0.9 % Sodium Chloride [Oxytocin 30 Unit/500 ML-NS] 30 unit in 500 ml IV TITRATE 02/19/20 21:13 RPR (SYPHILIS SERO) W/ RFLX [REF] Routine TYPE AND SCREEN [BBK] Routine 02/19/20 21:16 Nalbuphine [Nubain] 10 mg IVPUSH Q1H PRN - Plan Plan:: Admit inpatient to unit S/P of post-dates viable NBM. See new orders. Dr. Kamara notified and agreeable with POC.
[2020-02-19] MEDS ORDERED: Benzocaine/Menthol 20%-0.5% Spray 78 GM Cannister TOP PRN (22:04)
[2020-02-19] MEDS ORDERED: Acetaminophen 500 MG Tab PO PRN ×2 (22:04)
[2020-02-19] MEDS ORDERED: Docusate Sodium 100 MG Cap PO PRN (22:04)
[2020-02-19] MEDS ORDERED: Ibuprofen 800 MG Tab PO PRN (22:04)
[2020-02-19] MEDS ORDERED: Ibuprofen 400 MG Tab PO PRN (22:04)
[2020-02-19] MEDS ORDERED: Bisacodyl 10 MG Supp RECTAL PRN (22:04)
[2020-02-19] MEDS ORDERED: Witch Hazel Medicated Pads 40/Jar TOP PRN (22:04)
[2020-02-19] MEDS ORDERED: oxyCODONE 5 MG Tab PO PRN (22:04)
[2020-02-19] MEDS ORDERED: Lanolin 100% Cream 7 GM Tube TOP PRN (22:04)
--- NOTE | 2020-02-20 11:40 | PCM.DCSUM1 ---
Discharge Summary - Hospital Course Diagnosis: Stroke: No - Discharge Data Discharge Date: 02/20/20 Discharge Disposition: Home, Self-Care 01 Condition: Good - Referral to Home Health Primary Care Physician: PCP None - Patient Instructions Diet: Usual Diet as Tolerated Activity: As Tolerated Driving: Do Not Drive - Discharge Plan Home Medications: Home Meds Cranberry 03/05/14 [History] Lactobacillus Acidophilus [Probiotic] 1 each PO 03/05/14 [History] Vits #93/Iron Fum/FA [ Formula Tablet] 1 each PO 03/05/14 [History] - Discharge Summary/Plan Comment DC Time >30 min.: Yes - General Info Date of Service: 02/20/20 Functional Status: Reports: Pain Controlled - Review of Systems General: Reports: No Symptoms HEENT: Reports: No Symptoms Pulmonary: Reports: No Symptoms Cardiovascular: Reports: No Symptoms Gastrointestinal: Reports: No Symptoms Genitourinary: Reports: No Symptoms Musculoskeletal: Reports: No Symptoms Skin: Reports: No Symptoms Neurological: Reports: No Symptoms Psychiatric: Reports: No Symptoms - Patient Data Vitals - Most Recent: Last Vital Signs Temp 36.5 C 02/20/20 08:00 Pulse 83 02/20/20 08:00 Resp 14 02/20/20 08:00 BP 99/59 L 02/20/20 08:00 Pulse Ox 96 02/20/20 08:00 Weight - Most Recent: 78.471 kg Lab Results - Last 24 hrs: Laboratory Results - last 24 hr 02/19/20 02/19/20 Range/Units 21:13 21:13 WBC 15.45 H (4.0-11.0) K/uL RBC 4.66 (4.30-5.90) M/uL Hgb 14.2 (12.0-16.0) g/dL Hct 42.8 (36.0-46.0) % MCV 91.8 (80.0-98.0) fL MCH 30.5 (27.0-32.0) pg MCHC 33.2 (31.0-37.0) g/dL RDW Std Deviation 48.3 (28.0-62.0) fl RDW Coeff of Gualberto 14 (11.0-15.0) % Plt Count 232 (150-400) K/uL MPV 10.90 (7.40-12.00) fL Nucleated RBC % 0.0 /100WBC Nucleated RBCs # 0 K/uL Blood Type B POSITIVE Antibody Screen NEGATIVE Med Orders - Current: Current Medications Acetaminophen (Tylenol Extra Strength) 500 mg PO Q4H PRN PRN Reason: Pain Last Admin: 02/19/20 23:47 Dose: 500 mg Documented by: Acetaminophen (Tylenol Extra Strength) 1,000 mg PO Q4H PRN PRN Reason: Pain Benzocaine/Menthol (Dermoplast Pain Relief 20%-0.5% [place]) 78 gm TOP ASDIRECTED PRN PRN Reason: Perineal Comfort Measure Bisacodyl (Dulcolax) 10 mg RECTAL ONETIME PRN PRN Reason: Constipation Docusate Sodium (Colace) 100 mg PO BID PRN PRN Reason: Constipation Emollient Ointment (Lansinoh Hpa) 0 gm TOP ASDIRECTED PRN PRN Reason: Sore Nipples Ibuprofen (Motrin) 400 mg PO Q4H PRN PRN Reason: Pain Ibuprofen (Motrin) 800 mg PO Q6H PRN PRN Reason: Pain Last Admin: 02/20/20 05:59 Dose: 800 mg Documented by: Oxycodone HCl (Oxycodone) 5 mg PO Q2H PRN PRN Reason: Pain [place] (Tucks) 1 pad TOP ASDIRECTED PRN PRN Reason: comfort care Discontinued Medications Butorphanol Tartrate (Stadol) 1 mg IVPUSH Q1H PRN PRN Reason: Pain Carboprost Tromethamine (Hemabate Ds) 250 mcg IM ASDIRECTED PRN PRN Reason: Post Hemorrhage Oxytocin/Sodium Chloride (Oxytocin 30 Unit/500 Ml-Ns) 30 unit in 500 mls @ 500 mls/hr IV TITRATE JUANJOSE Tranexamic Acid 1,000 mg/ (Sodium Chloride) 110 mls @ 660 mls/hr IV ONETIME PRN PRN Reason: Bleeding Lactated Ringer's (Ringers, Lactated) 1,000 mls @ 150 mls/hr IV ASDIRECTED JUANJOSE Lidocaine HCl (Xylocaine 1%) 50 ml INJECT ONETIME PRN PRN Reason: Laceration repair Methylergonovine Maleate (Methergine) 0.2 mg IM ASDIRECTED PRN PRN Reason: Post Hemorrhage Misoprostol (Cytotec) 200 mcg PO ONETIME PRN PRN Reason: Post Hemorrhage Nalbuphine HCl (Nubain) 10 mg IVPUSH Q1H PRN PRN Reason: Pain (severe 7-10) Sodium Chloride (Saline Flush) 10 ml FLUSH ASDIRECTED PRN PRN Reason: Keep Vein Open Sodium Chloride (Saline Flush) 2.5 ml FLUSH ASDIRECTED PRN PRN Reason: Keep Vein Open Sodium Chloride (Normal Saline) 10 ml IV ASDIRECTED PRN PRN Reason: IV Use Sterile Water (Sterile Water For Irrigation) 1,000 ml IRR ASDIRECTED PRN PRN Reason: delivery - Exam General: Reports: Alert, Oriented HEENT: Reports: Pupils Equal, Pupils Reactive, EOMI, Mucous Membr. Moist/[place] Neck: Reports: Supple Lungs: Reports: Clear to Auscultation, Normal Respiratory Effort Cardiovascular: Reports: Regular Rate, Regular Rhythm GI/Abdominal Exam: Normal Bowel Sounds, Soft, Non-Tender, No Organomegaly, No Distention, No Abnormal Bruit, No Mass, Pelvis Stable (Female) Exam: Normal External Exam, Normal Speculum Exam, Normal Bimanual Exam Rectal (Female) Exam: Normal Exam, Normal Rectal Tone Back Exam: Reports: Normal Inspection, Full Range of Motion Extremities: Normal Inspection, Normal Range of Motion, Non-Tender, No Pedal Edema, Normal Capillary Refill Skin: Reports: Warm, Dry, Intact Wound/Incisions: Reports: Healing Well Neurological: Reports: No New Focal Deficit Psy/Mental Status: Reports: Alert, Normal Affect, Normal Mood
[2020-02-20 19:45] VITALS: BP 112/71; PULSE 88
== END 2020-02-20 23:10 | disposition home or self-care (01) | DRG 807 ==
LOC: MW.OBCHECK 18:46 → MW.OB 20:59 → OBSVTOIN 21:30 → MW.OB 02-20 00:01
PROVIDERS: ADMIT Obstetrics & Gynecology; ATTEND Obstetrics & Gynecology
PROC: 10E0XZZ Delivery of Products of Conception, External Approach (ICD-10-PCS; principal; 2020-02-19)
PROC: 10907ZC Drainage of Amniotic Fluid, Therapeutic from Products of Conception, Via Natural or Artificial Opening (ICD-10-PCS; 2020-02-19)
DX: O48.0 Post-term pregnancy (principal); Z37.0 Single live birth; Z3A.42 42 weeks gestation of pregnancy
CPT/HCPCS: 59025; 59409; 85027; 86592; 86850; 86900; 86901; A9270-GY

== ENCOUNTER 2022-02-20 22:08 | Emergency (ER) | payer OTHER ==
[2022-02-20] MEDS ORDERED: Lidocaine 1% 5 ML VIAL INJECT ONE (23:13)
[2022-02-21 00:20] VITALS: BP 121/57; PULSE 77
== END 2022-02-21 00:20 | disposition home or self-care (01) ==
LOC: MW.ED 22:08
DX: S92.532A Displaced fracture of distal phalanx of left lesser toe(s), initial encounter for closed fracture (principal); W22.8XXA Striking against or struck by other objects, initial encounter
CPT/HCPCS: 28515; 73620-26-LT; 73620-LT; 73630-26-LT; 73630-LT; 99283; 99283-25